=== PATIENT | male | born 1970 | race Caucasian/White ===

== ENCOUNTER 2018-02-10 12:48 | Emergency (ER) | payer BC, OTHER ==
[~2018-02-10 12:48] MED LIST: ALB18R INH; ALBU2.5V44 IH; AMOX-559 PO; AUG500 PO; AUG875 PO; AZIT-18 PO; CEFU250S6 PO; CEP500 PO; CODE118S5 PO; CYCL-332 PO; CYCL10TA29 PO; DIPH-740 PO; HYDR-2946 PO; HYDR-3503 PO; HYDR-3724 PO; HYDR-4308 PO; HYDR-4309 PO; IBU800 PO; IBUP-56 PO; KET10 PO; LOR5 PO; LOR5/325 PO; METH4TAB66 PO; MIR15 PO; MOMR; NO ROUTINE MEDS; PER PO; PRE20 PO; PRED-1 PO; PRED20TA6 PO; ROBC PO
--- NOTE | 2018-02-10 12:50 | ER Report ---
History and Physical Time Seen By MD: 12:49 HPI/ROS CHIEF COMPLAINT: Rectal Pain HISTORY OF PRESENT ILLNESS: Patient is a 47-year-old male here with complaints of rectal pain, painful defecation,, pain with sitting since yesterday. She denies prior history of hemorrhoids, rectal bleeding, bright red blood per rectum, melena, fevers, chills, abdominal pain, nausea, vomiting. He recently was traveling and reports that he had diarrhea afterwards causing significant pain. Patient was noted to have large thrombosed external hemorrhoids present on evaluation. REVIEW OF SYSTEMS: Constitutional: No fever, no chills. Eyes: No discharge. ENT: No sore throat. Cardiovascular: No chest pain, no palpitations. Respiratory: No cough, no shortness of breath. Gastrointestinal: No abdominal pain, no vomiting. Genitourinary: No hematuria. Musculoskeletal: No back pain. Skin: No rashes. Rectal: + rectal pain, pain with sitting Neurological: No headache. Allergies: Coded Allergies: mirtazapine (Verified Allergy, Mild, 02/10/18) Home Meds Active Scripts Oxycodone Hcl/Acetaminophen (OXYCODONE-ACETAMINOPHEN 5-325) 1 Each Tablet, 1 EACH PO Q6-8H for PAIN for 4 Days, #10 TAB Prov:VIK CONTRERAS DO 02/10/18 Reported Medications Diphenhydramine Hcl (BENADRYL) 25 Mg Capsule, 50 MG PO QHS, CAPSULE 12/04/16 Ibuprofen (IBUPROFEN) 200 Mg Tablet, 6 TAB PO QHS, TAB 12/04/16 Discontinued Scripts Amoxicillin/Pot Clav 875-125 Mg Tab (AUGMENTIN 875-125 TABLET) 1 Each Tablet, 1 TAB PO Q12H, #14 TAB Prov:JOSE MAZA 12/22/16 Hx Smoking: Yes (2 cigarettes ) Smoking Status: Current: Every Day Smoker Exposure to Second Hand Smoke?: No Hx Substance Use Disorder: No Hx Alcohol Use: No Constitutional Vital Sign - Last 24 Hours 02/10/18 12:53 Pulse 74 Resp 14 B/P (MAP) 157/95 Pulse Ox 94 O2 Delivery Room Air Physical Exam General Appearance: The patient is alert, has no immediate need for airway protection and no signs of toxicity. + moderate distress due to pain Eyes: Pupils equal and round no pallor or injection. ENT, Mouth: Mucous membranes are moist. Respiratory: There are no retractions, lungs are clear to auscultation. Cardiovascular: Regular rate and rhythm. [ ] Gastrointestinal: Abdomen is soft and non tender, no masses, bowel sounds normal. + two external hemorrhoids- thrombosed Neurological: No focal neuro deficits Skin: Warm and dry, no rashes. Musculoskeletal: Neck is supple non tender. Extremities are nontender, nonswollen and have full range of motion. [ ] [DIFFERENTIAL DIAGNOSIS: After history and physical exam differential diagnosis was considered for] [ ] Medical Decision Making ED Course/Re-evaluation ED Course Patient is a 47-year-old male here with complaints of rectal pain since yesterday, diarrhea found to have 2 large partially thrombosed external hemorrhoids. The hemorrhoids were numbed using 1% lidocaine with epinephrine. Using an 11 blade, I attempted to make small elliptical incisions to the hemorrhoids which evacuated bright red blood and small dark clots. I was unable to excise large clots as the hemorrhoids are likely not organized into a large thrombosis. Patient was advised to attempt sitz baths, topical anesthetics, stool softeners. She was given a prescription for Percocet for analgesia. He is advised to follow-up with surgery if the symptoms fail to improve the next several days and to return if he develops any signs of infection, fevers, chills , discharge. Procedure Incision and drainage of 2 external partially thrombosed hemorrhoids was attempted. The hemorrhoids were anesthetized utilizing lidocaine 1% with epinephrine. Using an 11 blade, small elliptical incisions were made into the hemorrhoids and attempts to evacuate thrombosis. Bright blood and small clots were evacuated from the sites but some mass still remains. Hemostasis was achieved using tranexamic acid soaked pledgets. Decision to Disposition Date: February 10, 2018 Decision to Disposition Time: 14:29 Depart Departure Latest Vital Signs Vital Signs Date Time Temp Pulse Resp B/P (MAP) Pulse Ox O2 Delivery O2 Flow Rate FiO2 02/10/18 12:53 74 14 157/95 94 Room Air Impression: Primary Impression: External hemorrhoid, thrombosed Condition: Condition Unchanged Disposition: HOME OR SELF-CARE New Scripts Oxycodone Hcl/Acetaminophen (OXYCODONE-ACETAMINOPHEN 5-325) 1 Each Tablet 1 EACH PO Q6-8H for PAIN for 4 Days, #10 TAB Prov: VIK CONTRERAS DO 02/10/18 Patient Instructions: Hemorrhoids (ED), Oxycodone/Acetaminophen (By mouth) Additional Instructions: You may take 1 tablet of Percocet every 6-8 hours as needed for pain. Please utilize sitz bath's, ice to the affected area, please start stool softeners to help with stool transit and pain. Please follow up with your family doctor within the next week. Please return promptly if you develop fevers, rectal discharge, worsening pain, difficulty defecating. VIK CONTRERAS DO February 10, 2018 12:50
[2018-02-10] MEDS ORDERED: LIDO/EPI 1% MDV 1:100,000 20ML INFIL ONE (13:09)
[2018-02-10] MEDS ORDERED: TRANEXAMIC AC 1000 MG/10ML SDV ONE (13:30)
[2018-02-10 14:02] VITALS: BP 135/72
[2018-02-10] MEDS ORDERED: OXYC-373 PO (14:14)
== END 2018-02-10 14:38 | disposition home or self-care (01) ==
LOC: ER 12:54
DX: K64.5 Perianal venous thrombosis (principal)
CPT/HCPCS: 99283

== ENCOUNTER 2018-02-11 11:03 | Emergency (ER) | payer BC ==
[~2018-02-11 11:03] MED LIST changes: +OXYC-373 PO
--- NOTE | 2018-02-11 11:09 | ER Report ---
History and Physical Time Seen By MD: 11:08 HPI/ROS CHIEF COMPLAINT: Thrombosed external hemorrhoids HISTORY OF PRESENT ILLNESS: Patient is a 47-year-old male here with complaints of worsened rectal pain at the site of 2 large thrombosed hemorrhoids. Patient was evaluated yesterday for the same at which time an attempt of evacuating the hemorrhoids was made. Patient had been discharged on analgesia and advised to pursue sitz bath's which only gave the patient mild relief of symptoms. He reportedly had several episodes of near syncope and worsening swelling and pain which prompted re evaluation today. Patient denies fevers, chills, chest pain, shortness of breath, abdominal pain, dysuria, hematuria. REVIEW OF SYSTEMS: Constitutional: No fever, no chills. Eyes: No discharge. ENT: No sore throat. Cardiovascular: No chest pain, no palpitations. Respiratory: No cough, no shortness of breath. Gastrointestinal: No abdominal pain, no vomiting. Genitourinary: No hematuria, + rectal pain Musculoskeletal: No back pain. Skin: No rashes. Neurological: No headache. 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 66 ??? Resp 14 B/P (MAP) 138/81 138/81 (100) Pulse Ox 95 O2 Delivery Room Air 02/11/18 02/11/18 02/11/18 02/11/18 11:30 11:33 11:48 12:00 Pulse 57 60 B/P (MAP) 125/87 (100) 134/87 (103) Pulse Ox 94 97 02/11/18 02/11/18 12:03 12:18 Pulse 53 61 Pulse Ox 97 91 Intake and Output 02/11/18 02/11/18 02/12/18 15:00 23:00 07:00 Intake Total 1000 ml Balance 1000 ml Physical Exam General Appearance: The patient is alert, has no immediate need for airway protection and no signs of toxicity. + moderate distress due to pain Gastrointestinal: Abdomen is soft and non tender, no masses, bowel sounds normal. Neurological: No focal deficits Skin: Warm and dry, no rashes. Rectal: + two external thrombosed hemorrhoids Musculoskeletal: Extremities are nontender, nonswollen and have full range of motion. DIFFERENTIAL DIAGNOSIS: After history and physical exam differential diagnosis was considered for thrombosed external, internal hemorrhoids, rectal prolapse Medical Decision Making Data Points Result Diagram: 02/11/18 1119 02/11/18 1119 Laboratory Hematology Test 02/11/18 11:19 02/11/18 12:02 Red Blood Count 5.16 M/uL (4.00-5.60) Mean Corpuscular Volume 89.0 fL (80.0-96.0) Mean Corpuscular Hemoglobin 31.4 pg (26.0-33.0) Mean Corpuscular Hemoglobin Concent 35.3 g/dL (32.0-36.0) Red Cell Distribution Width 13.2 % (11.5-14.5) Mean Platelet Volume 7.7 fL (7.2-11.1) Neutrophils (%) (Auto) 72.9 % (39.4-72.5) Lymphocytes (%) (Auto) 19.5 % (17.6-49.6) Monocytes (%) (Auto) 6.2 % (4.1-12.4) Eosinophils (%) (Auto) 1.1 % (0.4-6.7) Basophils (%) (Auto) 0.3 % (0.3-1.4) Nucleated RBC Relative Count (auto) 0.0 /100WBC Neutrophils # (Auto) 8.5 K/uL (2.0-7.4) Lymphocytes # (Auto) 2.3 K/uL (1.3-3.6) Monocytes # (Auto) 0.7 K/uL (0.3-1.0) Eosinophils # (Auto) 0.1 K/uL (0.0-0.5) Basophils # (Auto) 0.0 K/uL (0.0-0.1) Nucleated RBC Absolute Count (auto) 0.00 K/uL Prothrombin Time 12.4 seconds (12.0-14.4) Prothromb Time International Ratio 0.93 Activated Partial Thromboplast Time 25 seconds (23-35) Sodium Level 141 mmol/L (137-145) Potassium Level 3.7 mmol/L (3.5-5.0) Chloride Level 106 mmol/L (98-107) Carbon Dioxide Level 25 mmol/L (22-30) Blood Urea Nitrogen 11 mg/dl (9-21) Creatinine 0.90 mg/dl (0.66-1.25) Glomerular Filtration Rate Calc > 60.0 Random Glucose 99 mg/dl (75-110) Calcium Level 9.6 mg/dl (8.4-10.2) Total Bilirubin 0.6 mg/dl (0.2-1.3) Aspartate Amino Transf (AST/SGOT) 23 U/L (0-35) Alanine Aminotransferase (ALT/SGPT) 25 U/L (0-56) Alkaline Phosphatase 91 U/L (0-126) Total Protein 7.0 gm/dl (6.3-8.2) Albumin 4.2 g/dl (3.5-5.0) Chemistry Test 02/11/18 11:19 02/11/18 12:02 White Blood Count 11.6 k/uL (4.5-11.0) Red Blood Count 5.16 M/uL (4.00-5.60) Hemoglobin 16.2 g/dL (14.0-18.0) Hematocrit 45.9 % (42.0-52.0) Mean Corpuscular Volume 89.0 fL (80.0-96.0) Mean Corpuscular Hemoglobin 31.4 pg (26.0-33.0) Mean Corpuscular Hemoglobin Concent 35.3 g/dL (32.0-36.0) Red Cell Distribution Width 13.2 % (11.5-14.5) Platelet Count 284 K/uL (150-450) Mean Platelet Volume 7.7 fL (7.2-11.1) Neutrophils (%) (Auto) 72.9 % (39.4-72.5) Lymphocytes (%) (Auto) 19.5 % (17.6-49.6) Monocytes (%) (Auto) 6.2 % (4.1-12.4) Eosinophils (%) (Auto) 1.1 % (0.4-6.7) Basophils (%) (Auto) 0.3 % (0.3-1.4) Nucleated RBC Relative Count (auto) 0.0 /100WBC Neutrophils # (Auto) 8.5 K/uL (2.0-7.4) Lymphocytes # (Auto) 2.3 K/uL (1.3-3.6) Monocytes # (Auto) 0.7 K/uL (0.3-1.0) Eosinophils # (Auto) 0.1 K/uL (0.0-0.5) Basophils # (Auto) 0.0 K/uL (0.0-0.1) Nucleated RBC Absolute Count (auto) 0.00 K/uL Prothrombin Time 12.4 seconds (12.0-14.4) Prothromb Time International Ratio 0.93 Activated Partial Thromboplast Time 25 seconds (23-35) Glomerular Filtration Rate Calc > 60.0 Calcium Level 9.6 mg/dl (8.4-10.2) Total Bilirubin 0.6 mg/dl (0.2-1.3) Aspartate Amino Transf (AST/SGOT) 23 U/L (0-35) Alanine Aminotransferase (ALT/SGPT) 25 U/L (0-56) Alkaline Phosphatase 91 U/L (0-126) Total Protein 7.0 gm/dl (6.3-8.2) Albumin 4.2 g/dl (3.5-5.0) Coagulation Test 02/11/18 11:19 Prothrombin Time 12.4 seconds Prothromb Time International Ratio 0.93 Activated Partial Thromboplast Time 25 seconds ED Course/Re-evaluation ED Course Patient is a 47-year-old male here with complaints of rectal pain at the site of 2 partially thrombosed external hemorrhoids. Patient was evaluated yesterday for the same complaints and excision and drainage was attempted of the hemorrhoids but was unsuccessful due to only partial thrombosis formation. Patient had been using sitz baths with only mild relief of symptoms. He did have several episodes of near syncope likely secondary to pain which prompted re evaluation today. Labs were collected and were unremarkable. Patient was given analgesia in the form of Dilaudid and fentanyl. She also had a lidocaine soaked gauze applied to the hemorrhoids with moderate relief of pain. Due to the size of the hemorrhoids and the significant pain, I discussed the patient with Dr. Hernandez (surgery) who offered to evaluate the patient in his clinic after discharge. I updated the patient and advised the patient to proceed directly to the clinic for evaluation. She was stable at time of discharge accompanied by his . Decision to Disposition Date: February 11, 2018 Decision to Disposition Time: 13:04 Depart Departure Latest Vital Signs Vital Signs Date Time Temp Pulse Resp B/P (MAP) Pulse Ox O2 Delivery O2 Flow Rate FiO2 02/11/18 12:18 61 91 02/11/18 12:00 134/87 (103) 02/11/18 11:07 97.8 14 Room Air Impression: Primary Impression: External hemorrhoid, thrombosed Condition: Improved Disposition: HOME OR SELF-CARE Patient Instructions: Hemorrhoids (ED) Additional Instructions: Please proceed directly to Dr. Hernandez's office for evaluation of your hemorrhoids. His office is located off of [facility]. Please return promptly with any worsening of your pain, fevers, lightheadedness VIK CONTRERAS DO February 11, 2018 11:09
[2018-02-11] MEDS ORDERED: NS(*) 0.9% 1000 ML BAG 1,000 ML IV ONE (11:47)
[2018-02-11] MEDS ORDERED: LIDOCAINE 2% VISC SLN 15ML UDC TP ONE (11:50)
[2018-02-11] MEDS ORDERED: HYDROmorphone* 1 MG/ML 1 MG/ML ML IVP ONE (11:50)
[2018-02-11] MEDS ORDERED: ONDANSETRON 4 MG/2 ML VIAL IVP ONE (11:50)
[2018-02-11 11:56] LABS: PLATELET COUNT, AUTOMATED 284 K/uL (150-450)
[2018-02-11 12:02] LABS: INR 0.93
[2018-02-11 13:00] VITALS: BP 119/82
[2018-02-11] MEDS ORDERED: fentaNYL CITR 100 MCG/2 ML AMP ONE (13:10)
[2018-02-12] MEDS ORDERED: fentaNYL CITR 100 MCG/2 ML AMP IVP ONE (09:50)
== END 2018-02-11 13:15 | disposition home or self-care (01) ==
LOC: ER 11:12
DX: K64.5 Perianal venous thrombosis (principal); R55 Syncope and collapse
CPT/HCPCS: 36415; 82330; 85025; 85610; 85730; 96361; 96374; 96375; 99284; J1170; J2405; J3010; J7030; 82040; 82247; 82310; 82374; 82435; 82565; 82947; 84075; 84132; 84155; 84295; 84450; 84460; 84520

== ENCOUNTER 2018-10-16 12:09 | Emergency (ER) | payer SELFPAY ==
[~2018-10-16 12:09] MED LIST changes: -HYDR-4308 PO; -HYDR-4309 PO; +HYDR-653 PO; +HYDR-654 PO
--- NOTE | 2018-10-16 12:16 | ER Report ---
History and Physical Time Seen By MD: 12:16 HPI/ROS CHIEF COMPLAINT: Body aches, headache congestion abdominal pain HISTORY OF PRESENT ILLNESS: Patient is a 48 from male who presents to the emergency department with approximately 3 days of body aches, headache and congestion also had 2 days ago had nausea and diarrhea. Subjective fevers. No k nown ill contacts at home. No known ill contacts at work. Patient denies any other significant past medical history. REVIEW OF SYSTEMS: Constitutional: Subjective fevers Eyes: No discharge. ENT: No sore throat. Cardiovascular: No chest pain, no palpitations. Respiratory: No cough, no shortness of breath. Gastrointestinal: Abdominal cramping and nausea vomiting diarrhea Genitourinary: No hematuria. Musculoskeletal: No back pain. Skin: No rashes. Neurological: Headache Allergies: Coded Allergies: mirtazapine (Verified Allergy, Mild, 10/16/18) Home Meds Active Scripts Dicyclomine Hcl (DICYCLOMINE HCL) 20 Mg Tablet, 20 MG PO QID for abdominal c ramping, #20 TAB 0 Refills Prov:BALJINDER LARA MD 10/16/18 Ondansetron Hcl (ZOFRAN) 4 Mg Tablet, 4 MG PO Q8H for Nausea, #15 TAB 0 Refills Prov:BALJINDER LARA MD 10/16/18 Oxycodone Hcl/Acetaminophen (OXYCODONE-ACETAMINOPHEN 5-325) 1 Each Tablet, 1 EACH PO Q6-8H for PAIN for 4 Days, #10 TAB Prov:VIK CONTRERAS DO 02/10/18 Reported Medications Diphenhydramine Hcl (BENADRYL) 25 Mg Capsule, 50 MG PO QHS, CAPSULE 12/04/16 Ibuprofen (IBUPROFEN) 200 Mg Tablet, 6 TAB PO QHS, TAB 12/04/16 Past Medical/Surgical History Noncontributory Hx Smoking: Yes (2 cigarettes ) Smoking Status: Current: Every Day Smoker Exposure to Second Hand Smoke?: No Hx Substance Use Disorder: No Hx Alcohol Use: No Constitutional Vital Sign - Last 24 Hours 10/16/18 12:17 Temp 99.0 Pulse 85 Resp 16 B/P (MAP) 134/119 Pulse Ox 94 O2 Delivery Room Air Physical Exam General Appearance: The patient is alert, has no immediate need for airway protection and no current signs of toxicity. Eyes: Pupils equal and round no injection. Respiratory: Chest is non tender, lungs are clear to auscultation. Cardiac: regular rate and rhythm Gastrointestinal: Abdomen is soft diffuse tenderness mostly in the lower quadrants no rebound tenderness noted Musculoskeletal: Neck: Neck is supple and non tender. Extremities have full range of motion and are non tender. Skin: No rashes or lesions. Medical Decision Making Data Points Result Diagram: 10/16/18 1245 10/16/18 1245 Laboratory Hematology Test 10/16/18 12:13 10/16/18 12:45 10/16/18 13:00 Urine Color Yellow Urine Clarity Clear Urine pH 5.0 pH (4.8-9.5) Urine Specific [place] 1.015 Urine Protein Negative mg/dL (NEGATIVE) Urine Glucose (UA) Negative mg/dL (NEGATIVE) Urine Ketones Negative mg/dL (NEGATIVE) Urine Blood Negative (NEGATIVE) Urine Nitrite Negative (NEGATIVE) Urine Bilirubin Negative (NEGATIVE) Urine Urobilinogen 2.0 mg/dL (0.2-1.9) Urine Leukocyte Esterase Negative (NEGATIVE) Urine RBC <1 /HPF (0-2/HPF) Urine WBC 2 /HPF (0-5/HPF) Urine Squamous Epithelial Cells Few /LPF (</=FEW) Urine Bacteria Negative /HPF (NONE-FEW) Urine Mucus Few /HPF (NONE-FEW) Red Blood Count 5.23 M/uL (4.00-5.60) Mean Corpuscular Volume 88.8 fL (80.0-96.0) Mean Corpuscular Hemoglobin 31.3 pg (26.0-33.0) Mean Corpuscular Hemoglobin Concent 35.3 g/dL (32.0-36.0) Red Cell Distribution Width 13.5 % (11.5-14.5) Mean Platelet Volume 7.7 fL (7.2-11.1) Neutrophils (%) (Auto) 65.9 % (39.4-72.5) Lymphocytes (%) (Auto) 23.5 % (17.6-49.6) Monocytes (%) (Auto) 8.3 % (4.1-12.4) Eosinophils (%) (Auto) 1.8 % (0.4-6.7) Basophils (%) (Auto) 0.5 % (0.3-1.4) Nucleated RBC Relative Count (auto) 0.1 /100WBC Neutrophils # (Auto) 6.8 K/uL (2.0-7.4) Lymphocytes # (Auto) 2.4 K/uL (1.3-3.6) Monocytes # (Auto) 0.8 K/uL (0.3-1.0) Eosinophils # (Auto) 0.2 K/uL (0.0-0.5) Basophils # (Auto) 0.1 K/uL (0.0-0.1) Nucleated RBC Absolute Count (auto) 0.01 K/uL Sodium Level 140 mmol/L (137-145) Potassium Level 3.7 mmol/L (3.5-5.0) Chloride Level 109 mmol/L (98-107) Carbon Dioxide Level 26 mmol/L (22-30) Blood Urea Nitrogen 8 mg/dl (9-21) Creatinine 0.90 mg/dl (0.66-1.25) Glomerular Filtration Rate Calc > 60.0 Random Glucose 92 mg/dl (75-110) Calcium Level 9.3 mg/dl (8.4-10.2) Total Bilirubin 0.4 mg/dl (0.2-1.3) Aspartate Amino Transf (AST/SGOT) 21 U/L (0-35) Alanine Aminotransferase (ALT/SGPT) 35 U/L (0-56) Alkaline Phosphatase 99 U/L (0-126) Total Protein 6.7 g/dl (6.3-8.2) Albumin 3.9 g/dl (3.5-5.0) Lipase 205 U/L (23-300) Helicobacter pylori IgG Antibody Negative (NEGATIVE) Influenza Virus Type A (PCR) Negative (NEGATIVE) Influenza Virus Type B (PCR) Negative (NEGATIVE) Chemistry Test 10/16/18 12:13 10/16/18 12:45 10/16/18 13:00 Urine Color Yellow Urine Clarity Clear Urine pH 5.0 pH (4.8-9.5) Urine Specific [place] 1.015 Urine Protein Negative mg/dL (NEGATIVE) Urine Glucose (UA) Negative mg/dL (NEGATIVE) Urine Ketones Negative mg/dL (NEGATIVE) Urine Blood Negative (NEGATIVE) Urine Nitrite Negative (NEGATIVE) Urine Bilirubin Negative (NEGATIVE) Urine Urobilinogen 2.0 mg/dL (0.2-1.9) Urine Leukocyte Esterase Negative (NEGATIVE) Urine RBC <1 /HPF (0-2/HPF) Urine WBC 2 /HPF (0-5/HPF) Urine Squamous Epithelial Cells Few /LPF (</=FEW) Urine Bacteria Negative /HPF (NONE-FEW) Urine Mucus Few /HPF (NONE-FEW) White Blood Count 10.3 k/uL (4.5-11.0) Red Blood Count 5.23 M/uL (4.00-5.60) Hemoglobin 16.4 g/dL (14.0-18.0) Hematocrit 46.4 % (42.0-52.0) Mean Corpuscular Volume 88.8 fL (80.0-96.0) Mean Corpuscular Hemoglobin 31.3 pg (26.0-33.0) Mean Corpuscular Hemoglobin Concent 35.3 g/dL (32.0-36.0) Red Cell Distribution Width 13.5 % (11.5-14.5) Platelet Count 289 K/uL (150-450) Mean Platelet Volume 7.7 fL (7.2-11.1) Neutrophils (%) (Auto) 65.9 % (39.4-72.5) Lymphocytes (%) (Auto) 23.5 % (17.6-49.6) Monocytes (%) (Auto) 8.3 % (4.1-12.4) Eosinophils (%) (Auto) 1.8 % (0.4-6.7) Basophils (%) (Auto) 0.5 % (0.3-1.4) Nucleated RBC Relative Count (auto) 0.1 /100WBC Neutrophils # (Auto) 6.8 K/uL (2.0-7.4) Lymphocytes # (Auto) 2.4 K/uL (1.3-3.6) Monocytes # (Auto) 0.8 K/uL (0.3-1.0) Eosinophils # (Auto) 0.2 K/uL (0.0-0.5) Basophils # (Auto) 0.1 K/uL (0.0-0.1) Nucleated RBC Absolute Count (auto) 0.01 K/uL Glomerular Filtration Rate Calc > 60.0 Calcium Level 9.3 mg/dl (8.4-10.2) Total Bilirubin 0.4 mg/dl (0.2-1.3) Aspartate Amino Transf (AST/SGOT) 21 U/L (0-35) Alanine Aminotransferase (ALT/SGPT) 35 U/L (0-56) Alkaline Phosphatase 99 U/L (0-126) Total Protein 6.7 g/dl (6.3-8.2) Albumin 3.9 g/dl (3.5-5.0) Lipase 205 U/L (23-300) Helicobacter pylori IgG Antibody Negative (NEGATIVE) Influenza Virus Type A (PCR) Negative (NEGATIVE) Influenza Virus Type B (PCR) Negative (NEGATIVE) Urinalysis Test 10/16/18 12:13 Urine Color Yellow Urine Clarity Clear Urine pH 5.0 pH (4.8-9.5) Urine Specific [place] 1.015 Urine Protein Negative mg/dL (NEGATIVE) Urine Glucose (UA) Negative mg/dL (NEGATIVE) Urine Ketones Negative mg/dL (NEGATIVE) Urine Blood Negative (NEGATIVE) Urine Nitrite Negative (NEGATIVE) Urine Bilirubin Negative (NEGATIVE) Urine Urobilinogen 2.0 mg/dL (0.2-1.9) Urine Leukocyte Esterase Negative (NEGATIVE) Urine RBC <1 /HPF (0-2/HPF) Urine WBC 2 /HPF (0-5/HPF) Urine Squamous Epithelial Cells Few /LPF (</=FEW) Urine Bacteria Negative /HPF (NONE-FEW) Urine Mucus Few /HPF (NONE-FEW) ED Course/Re-evaluation ED Course 10/16/2018 12:32:17 pm this time will be abdominal workup including CBC CMP lipase will also check for influenza give IV fluids and Zofran and Bentyl and Toradol 10/16/2018 1:47:37 pm symptoms improved after IV fluids and medications. We'll discharge home Decision to Disposition Date: Oct 16, 2018 Decision to Disposition Time: 13:47 Depart Departure Latest Vital Signs Vital Signs Date Time Temp Pulse Resp B/P (MAP) Pulse Ox O2 Delivery O2 Flow Rate FiO2 10/16/18 12:17 99.0 85 16 134/119 94 Room Air Impression: Primary Impression: Gastroenteritis Condition: Improved Disposition: HOME OR SELF-CARE New Scripts Dicyclomine Hcl (DICYCLOMINE HCL) 20 Mg Tablet 20 MG PO QID for abdominal cramping, #20 TAB 0 Refills Prov: BALJINDER LARA MD 10/16/18 Ondansetron Hcl (ZOFRAN) 4 Mg Tablet 4 MG PO Q8H for Nausea, #15 TAB 0 Refills Prov: BALJINDER LARA MD 10/16/18 Departure Forms: ER Transition Record, Medications Reconciliation, Off Work/School Form, School or Work Release?: Work Number of days to be released: 2 Patient Portal Information Patient Instructions: Gastroenteritis (DC) BALJINDER LARA MD Oct 16, 2018 12:16
[2018-10-16 12:17] VITALS: BP 134/119
[2018-10-16] MEDS ORDERED: NS(*) 0.9% 1000 ML BAG 1,000 ML IV ONE ×2 (12:27→12:35)
[2018-10-16] MEDS ORDERED: KETOROLAC 30 MG/ML VIAL IVP ONE (12:30)
[2018-10-16] MEDS ORDERED: DICYCLOMINE HCL 10 MG CAP PO ONE (12:30)
[2018-10-16] MEDS ORDERED: ONDANSETRON 4 MG/2 ML VIAL IVP ONE (12:30)
[2018-10-16 13:13] LABS: PLATELET COUNT, AUTOMATED 289 K/uL (150-450)
[2018-10-16] MEDS ORDERED: ONDA4TAB97 PO (13:48)
[2018-10-16] MEDS ORDERED: DICY20TA70 PO (13:48)
== END 2018-10-16 14:00 | disposition home or self-care (01) ==
LOC: ER 12:18
DX: K52.9 Noninfective gastroenteritis and colitis, unspecified (principal)
CPT/HCPCS: 81001; 83690; 85025; 86677; 87502; 96361; 96374; 96375; 99284; J1885; J2405; J7030; 82040; 82247; 82310; 82374; 82435; 82565; 82947; 84075; 84132; 84155; 84295; 84450; 84460; 84520

== ENCOUNTER 2019-02-23 10:25 | Emergency (ER) | payer BC ==
[~2019-02-23 10:25] MED LIST changes: +DICY20TA70 PO; +ONDA4TAB97 PO
[2019-02-23 10:29] VITALS: BP 163/109
--- NOTE | 2019-02-23 10:43 | ER Report ---
History and Physical Time Seen By MD: 10:41 Hx. of Stated Complaint: PT STATES SWELLING IN RIGHT SIDE OF FACE, STATES SINUS PAIN AND CAN "TASTE INFECTION" IN MOUTH HPI/ROS CHIEF COMPLAINT: Dental pain and sinus pressure HISTORY OF PRESENT ILLNESS: This is a 48-year-old male presented to the emergency department with his for dental pain and sinus pressure. 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 He states over the last day or so he's had some increased pain and swelling to the upper lip into the right side of his face. States that's significant only worse last n ight significant amount of swelling this morning has gone down since this morning however still present. States took some port all from a previous injury yesterday with some minimal relief. Subjectively had fevers. Temperature 99.7 in the emergency department. He does not feel like his airway is closing, speech is not changed, no visual disturbances, he also states that he is prone to sinus infections is concerned that he has a possible dental infection that is contributing to a sinus infection as well. No nausea or vomiting. Minor chills. No chest pain or shortness of breath. No rashes. He has tried contacting several of the dental offices here in town however there not available for the next 10- 12 days. REVIEW OF SYSTEMS: Constitutional: As above. Eyes: No discharge. ENT: As above. Cardiovascular: No chest pain, no palpitations. Respiratory: No cough, no shortness of breath. Gastrointestinal: No abdominal pain, no vomiting. Genitourinary: No hematuria. Musculoskeletal: No back pain. Skin: No rashes. Neurological: No headache. Allergies: Coded Allergies: mirtazapine (Verified Allergy, Mild, 10/16/18) Home Meds Active Scripts Hydrocodone Bit/Acetaminophen (NORCO 5-325 TABLET) 1 Each Tablet, 1 EACH PO Q4- 6H PRN for PAIN, #5 TAB Prov:LISSA BOGGSP-BC 02/23/19 Amoxicillin/Pot Clav 875-125 Mg Tab (AUGMENTIN 875-125 TABLET) 1 Each Tablet, 1 TAB PO Q12H for 8 Days, #16 TAB Prov:LISSA BOGGSP-BC 02/23/19 Dicyclomine Hcl (DICYCLOMINE HCL) 20 Mg Tablet, 20 MG PO QID for abdominal cramping, #20 TAB 0 Refills Prov:BALJINDER LARA MD 10/16/18 Ondansetron Hcl (ZOFRAN) 4 Mg Tablet, 4 MG PO Q8H for Nausea, #15 TAB 0 Refills Prov:BALJINDER LARA MD 10/16/18 Oxycodone Hcl/Acetaminophen (OXYCODONE-ACETAMINOPHEN 5-325) 1 Each Tablet, 1 EACH PO Q6-8H for PAIN for 4 Days, #10 TAB Prov:VIK CONTRERAS DO 02/10/18 Reported Medications Diphenhydramine Hcl (BENADRYL) 25 Mg Capsule, 50 MG PO QHS, CAPSULE 12/04/16 Ibuprofen (IBUPROFEN) 200 Mg Tablet, 6 TAB PO QHS, TAB 12/04/16 Past Medical/Surgical History Patient has a past medical and surgical history of deviated septum, headaches, appendectomy, bladder disease, cholecystectomy, rheumatoid arthritis, smokes cigarettes. Reviewed Nurses Notes: Yes Hx Smoking: Yes (2 cigarettes ) Smoking Status: Current: Every Day Smoker Exposure to Second Hand Smoke?: No Hx Substance Use Disorder: No Hx Alcohol Use: No Constitutional Vital Sign - Last 24 Hours 02/23/19 10:29 Temp 99.7 Pulse 70 Resp 16 B/P (MAP) 163/109 Pulse Ox 93 O2 Delivery Room Air Physical Exam General Appearance: The patient is alert, has no immediate need for airway protection and no signs of toxicity. Eyes: Pupils equal and round no pallor or injection. ENT, Mouth: Mucous membranes are moist. Dental caries to medial side of the number 8 tooth. Posterior wire connecting #8 and 9 teeth. Redness and swelling to the gumline on the upper right side of the mouth in a front surrounding the #6,7 and 8 teeth. Firmness noted to the right cheek, no obvious signs of cellulitis. No drainage noted. Respiratory: There are no retractions, lungs are clear to auscultation. Cardiovascular: Regular rate and rhythm. Gastrointestinal: Abdomen is soft and non tender, no masses, bowel sounds normal. Neurological: Alert and oriented 4. Moving all extremities. Following all commands. No focal neuro deficits. Skin: Warm and dry, no rashes. Musculoskeletal: Neck is supple non tender. Extremities are nontender, nonswollen and have full range of motion. DIFFERENTIAL DIAGNOSIS: After history and physical exam differential diagnosis was considered for dental abscess, sinus infection, dental caries, Andrea's angina. Medical Decision Making ED Course/Re-evaluation ED Course The patient was admitted to room. Initial visit were obtained. Differential diagnoses were considered. After examination of the patient, he was given a shot of Rocephin, as well as 60 mg IM Toradol. Patient was started on Augmentin, given [place] for home. Instructed to follow-up with a dentist as soon as possible as he will likely need extensive dental work. Patient was instructed to take ibuprofen as needed for moderate pain. Drink plenty of water. Expressed understanding, was agreeable with the plan of care and discharged home. Decision to Disposition Date: Feb 23, 2019 Decision to Disposition Time: 11:35 Depart Departure Latest Vital Signs Vital Signs Date Time Temp Pulse Resp B/P (MAP) Pulse Ox O2 Delivery O2 Flow Rate FiO2 02/23/19 10:29 99.7 70 16 163/109 93 Room Air Impression: Primary Impression: Pain, dental Additional Impression: Dental infection Condition: Improved Disposition: HOME OR SELF-CARE New Scripts Hydrocodone Bit/Acetaminophen (NORCO 5-325 TABLET) 1 Each Tablet 1 EACH PO Q4-6H PRN for PAIN, #5 TAB Prov: LISSA BOGGS- 02/23/19 Amoxicillin/Pot Clav 875-125 Mg Tab (AUGMENTIN 875-125 TABLET) 1 Each Tablet 1 TAB PO Q12H for 8 Days, #16 TAB Prov: LISSA BOGGS-RASHEED 02/23/19 Patient Instructions: Dental Abscess (ED), Dental Caries (ED) Additional Instructions: Please take the antibiotics as prescribed. Take 800mg Ibuprofen every 8 hours for pain. Take [place] for severe pain, this is a narcotic, no drinking or driving or operating machinery while taking narcotics. Please contact one of the local dentists or one in [place] for definitive treatment of the dental infection. Drink plenty of water. Get plenty of rest. Return to the ED for any other concerns or worsening symptoms, such as increased fevers, swelling or difficulties swallowing. Problem Qualifiers LISSA BOGGS Feb 23, 2019 10:43
[2019-02-23] MEDS ORDERED: cefTRIAXone 1 GM VIAL IM ONE (11:00)
[2019-02-23] MEDS ORDERED: KETOROLAC 60 MG/2 ML VIAL IM ONE (11:00)
[2019-02-23] MEDS ORDERED: LIDOCAINE 1% MDV 200 MG/20 ML INJ ONE (11:00)
[2019-02-23] MEDS ORDERED: AMOX-559 PO (11:09)
[2019-02-23] MEDS ORDERED: HYDR-653 PO (11:09)
== END 2019-02-23 11:40 | disposition home or self-care (01) ==
LOC: ER 10:45
DX: K04.7 Periapical abscess without sinus (principal)
CPT/HCPCS: 96372; 99284; J0696; J1885; J2001